=== PATIENT | female | born 1985 | race Caucasian/White ===

== ENCOUNTER 2018-08-01 02:55 | Inpatient (IN) | payer MEDICAID ==
[2018-08-01] MEDS ORDERED: ONDANSETRON 4 MG INJ IV ×2 (03:14→09:30)
[2018-08-01 03:21] LABS: ADD MAN DIFF? NO
[2018-08-01 03:22] LABS: ABNORMAL IP MESSAGE 1; BASOPHIL # 0.1 10^3/ul (0.0-0.1); BASOPHILS % 0.4 % (0.0-2.0); EOSINOPHILS # 1.5 10^3/ul (0.0-0.5); EOSINOPHILS % 11.3 % (0.0-7.0); HEMATOCRIT 41.1 % (37.0-47.0); HEMOGLOBIN 14.2 g/dl (12.0-16.0); LYMPHOCYTES # 5.6 10^3/ul (0.8-2.9); LYMPHOCYTES % 42.1 % (15.0-51.0); MEAN CORPUSCULAR HEMOGLOBIN 30.8 pg (29.0-33.0); MEAN CORPUSCULAR HGB CONC 34.5 g/dl (32.0-37.0); MEAN CORPUSCULAR VOLUME 89.2 fl (82.0-101.0); MEAN PLATELET VOLUME 10.5 fl (7.4-10.4); MONOCYTE # 0.7 10^3/ul (0.3-0.9); NEUTROPHIL # 5.5 10^3/ul (1.6-7.5); PLATELET COUNT 237 10^3/UL (140-415); RED BLOOD COUNT 4.61 10^6/ul (4.20-5.40); RED CELL DISTRIBUTION WIDTH 11.9 % (11.5-14.5)
[2018-08-01 03:22] LABS: WHITE BLOOD COUNT 13.3 10^3/ul (4.8-10.8)
[2018-08-01] MEDS: ONDANSETRON 4 MG INJ IV ×2 (03:24→09:49)
[2018-08-01] MEDS: morphine 4 MG/ML VIAL IV (03:24)
[2018-08-01] MEDS: SOD CHLORIDE 0.9% 1,000 ML IV ×3 (03:29→19:30)
[2018-08-01 03:47] LABS: POSITIVE DIFF @See below
[2018-08-01 04:36] LABS: INR 0.87; PROTIME 11.9 Sec (11.9-14.9); PT RATIO 0.9
[2018-08-01 04:37] LABS: PARTIAL THROMBOPLASTIN TIME 32.2 Sec (23.0-35.0)
[2018-08-01] MEDS: HYDROmorphONE 2 MG/ML SYG IV (04:39)
[2018-08-01 04:41] LABS: ADD UMIC NO; UR ASCORBIC ACID NEGATIVE (NEGATIVE); UR BILIRUBIN (Dip) NEGATIVE (NEGATIVE); UR BLOOD (Dip) NEGATIVE (NEGATIVE); UR CLARITY CLEAR (CLEAR); UR COLOR YELLOW (YELLOW); UR GLUCOSE (Dip) NEGATIVE (NEGATIVE); UR KETONES (Dip) 1+ mg/dL (NEGATIVE); UR LEUKOCYTE ESTERASE (Dip) NEGATIVE Leu/ul (NEGATIVE); UR NITRITE (Dip) NEGATIVE (NEGATIVE); UR TOTAL PROTEIN (Dip) NEGATIVE (NEGATIVE); UR UROBILINOGEN (Dip) NEGATIVE (NEGATIVE)
[2018-08-01 05:43] LABS: ALANINE AMINOTRANSFERASE 15 IU/L (13-69); ALBUMIN 4.4 g/dl (3.3-4.9); ALBUMIN/GLOBULIN RATIO 1.41; ALKALINE PHOSPHATASE 88 IU/L (42-121); AMYLASE 72 U/L (11-123); ANION GAP 13 (5-13); ASPARTATE AMINO TRANSFERASE 20 IU/L (15-46); BILIRUBIN,INDIRECT 0.6 mg/dl (0-1.1); BILIRUBIN,TOTAL 0.6 mg/dl (0.2-1.3); BLOOD UREA NITROGEN 19 mg/dl (7-20); CALCIUM 9.7 mg/dl (8.4-10.2); CARBON DIOXIDE 19 mmol/L (21-31); CHLORIDE 109 mmol/L (97-110); CREATININE 0.77 mg/dl (0.44-1.00); Estimated GFR > 60 mL/min (>60); GLUCOSE 107 mg/dl (70-220); LIPASE 67 U/L (23-300); POTASSIUM 3.2 mmol/L (3.5-5.1); SODIUM 141 mmol/L (135-144); TOTAL PROTEIN 7.5 g/dl (6.1-8.1)
[2018-08-01] MEDS: POTASSIUM CHLORIDE (SR) 20 MEQ TAB PO (06:22)
[2018-08-01] MEDS ORDERED: MAGNESIUM HYDROXIDE 30ML CUP PO (09:30)
[2018-08-01] MEDS ORDERED: BISACODYL 10 MG SUPP PR (09:30)
[2018-08-01] MEDS ORDERED: NACL 0.9% 3 ML SYG IV (09:30)
[2018-08-01] MEDS ORDERED: ACETAMINOPHEN 650 MG SUPP PR (09:30)
[2018-08-01] MEDS ORDERED: DOCUSATE SODIUM 100 MG CAP PO (09:30)
[2018-08-01] MEDS: morphine 2 MG INJ IV (09:49)
[2018-08-01] MEDS: ACETAMINOPHEN 325 MG TAB PO (23:33)
[2018-08-02] MEDS: SOD CHLORIDE 0.9% 1,000 ML IV ×2 (05:51→19:34)
[2018-08-02] MEDS: PANTOPRAZOLE 40 MG INJ IV (06:36)
[2018-08-02] MEDS ORDERED: SEVOFLURANE 15 MIN (07:00)
[2018-08-02 07:04] LABS: ALANINE AMINOTRANSFERASE 16 IU/L (13-69); ALBUMIN 3.4 g/dl (3.3-4.9); ALBUMIN/GLOBULIN RATIO 1.25; ALKALINE PHOSPHATASE 51 IU/L (42-121); ANION GAP 6 (5-13); ASPARTATE AMINO TRANSFERASE 16 IU/L (15-46); BILIRUBIN,INDIRECT 1.2 mg/dl (0-1.1); BILIRUBIN,TOTAL 1.2 mg/dl (0.2-1.3); BLOOD UREA NITROGEN 8 mg/dl (7-20); CALCIUM 8.3 mg/dl (8.4-10.2); CARBON DIOXIDE 24 mmol/L (21-31); CHLORIDE 111 mmol/L (97-110); CHOL/HDL RATIO 3.4 RATIO; CHOLESTEROL 134 mg/dl (100-200); CREATININE 0.67 mg/dl (0.44-1.00); Estimated GFR > 60 mL/min (>60); GLUCOSE 83 mg/dl (70-220); HDL CHOLESTEROL 39 mg/dl (34-82); LDL CHOLESTEROL,CALCULATED 72 mg/dl; PHOSPHORUS 3.3 mg/dl (2.5-4.9); POTASSIUM 4.1 mmol/L (3.5-5.1); SODIUM 141 mmol/L (135-144); TOTAL PROTEIN 6.1 g/dl (6.1-8.1); TRIGLYCERIDES 116 mg/dl (0-149)
[2018-08-02 07:13] LABS: T3 UPTAKE 34.8 % (23.5-40.5); T4 (THYROXINE) 6.6 ug/dl (5.5-11.0)
[2018-08-02 07:27] LABS: THYROID STIMULATING HORMONE 0.717 MIU/L (0.465-4.680)
[2018-08-02 08:05] LABS: HEMOGLOBIN A1C 5.1 % (0-5.9)
[2018-08-02] MEDS ORDERED: LIDOCAINE 2% (SDV) 5 ML INJ (11:17)
[2018-08-02] MEDS ORDERED: PROPOFOL 20 ML (11:17)
[2018-08-02] MEDS ORDERED: ROCURONIUM 50 MG INJ (11:17)
[2018-08-02] MEDS ORDERED: DEXAMETHASONE 4 MG/ML 5 ML INJ (11:17)
[2018-08-02] MEDS ORDERED: CEFAZOLIN 1 GM INJ (11:18)
[2018-08-02] MEDS ORDERED: ONDANSETRON 4 MG INJ (11:18)
[2018-08-02] MEDS: BUPIVACAINE 0.25%/EPI (SDV) 30 ML INJ (11:27)
[2018-08-02] MEDS ORDERED: SUGAMMADEX SODIUM 200 MG/2 ML VIAL IV (11:43)
[2018-08-02] MEDS ORDERED: ONDANSETRON 4 MG INJ IV ×2 (12:00→12:30)
[2018-08-02] MEDS ORDERED: OXYCODONE/ACETAMINOPHEN (5/325) TAB PO ×2 (12:00)
[2018-08-02] MEDS: HYDROmorphONE 1 MG/5 ML IV SYRINGE IV ×3 (12:16→12:32)
[2018-08-02] MEDS ORDERED: MIDAZOLAM 1 MG/ML 2 ML INJ IV (12:30)
[2018-08-02] MEDS ORDERED: METOCLOPRAMIDE 10 MG INJ IV (12:30)
[2018-08-02] MEDS ORDERED: MEPERIDINE 25 MG INJ IV (12:30)
[2018-08-02] MEDS ORDERED: EPHEDrine 25 MG/5 ML SYG IV (12:30)
[2018-08-02] MEDS ORDERED: FENTAnyl 50 MCG/ML VIAL IV ×3 (12:30)
[2018-08-02] MEDS ORDERED: DIPHENHYDRAMINE 50 MG INJ IV (12:30)
[2018-08-02] MEDS ORDERED: LABETALOL HCL 20MG INJ IV (12:30)
[2018-08-02] MEDS ORDERED: hydrALAzine 20 MG INJ IV (12:30)
[2018-08-02] MEDS ORDERED: ALBUTEROL 0.083% (NEB) 2.5 MG/3 ML AMP HHN (12:30)
[2018-08-02] MEDS ORDERED: HYDROmorphONE 1 MG/5 ML IV SYRINGE IV (12:30)
[2018-08-02] MEDS: KETOROLAC 30 MG INJ IV (12:32)
[2018-08-02] MEDS: morphine 2 MG INJ IV ×3 (15:19→21:35)
[2018-08-02] MEDS: HYDROCODONE/APAP (5/325) TAB PO (21:35)
[2018-08-03] MEDS: SOD CHLORIDE 0.9% 1,000 ML IV ×3 (01:30→18:51)
[2018-08-03 05:12] LABS: ADD MAN DIFF? NO
[2018-08-03 05:20] LABS: WHITE BLOOD COUNT 12.4 10^3/ul (4.8-10.8)
[2018-08-03 05:20] LABS: BASOPHILS % 0.2 % (0.0-2.0); EOSINOPHILS % 0.1 % (0.0-7.0); HEMATOCRIT 36.1 % (37.0-47.0); HEMOGLOBIN 12.3 g/dl (12.0-16.0); LYMPHOCYTES # 2.4 10^3/ul (0.8-2.9); LYMPHOCYTES % 19.2 % (15.0-51.0); MEAN CORPUSCULAR HEMOGLOBIN 30.4 pg (29.0-33.0); MEAN CORPUSCULAR HGB CONC 34.1 g/dl (32.0-37.0); MEAN CORPUSCULAR VOLUME 89.1 fl (82.0-101.0); MEAN PLATELET VOLUME 10.5 fl (7.4-10.4); MONOCYTE # 0.5 10^3/ul (0.3-0.9); MONOCYTES % 4.3 % (0.0-11.0); NEUTROPHIL # 9.4 10^3/ul (1.6-7.5); NEUTROPHILS % 75.8 % (39.0-77.0); PLATELET COUNT 210 10^3/UL (140-415); RED BLOOD COUNT 4.05 10^6/ul (4.20-5.40); RED CELL DISTRIBUTION WIDTH 11.9 % (11.5-14.5)
[2018-08-03] MEDS: HYDROCODONE/APAP (5/325) TAB PO ×3 (05:23→18:30)
[2018-08-03] MEDS: PANTOPRAZOLE (EC) 40 MG TAB PO (05:23)
[2018-08-03 06:04] LABS: ALANINE AMINOTRANSFERASE 28 IU/L (13-69); ALBUMIN 3.3 g/dl (3.3-4.9); ALBUMIN/GLOBULIN RATIO 1.17; ALKALINE PHOSPHATASE 49 IU/L (42-121); ANION GAP 5 (5-13); ASPARTATE AMINO TRANSFERASE 31 IU/L (15-46); BILIRUBIN,INDIRECT 0.7 mg/dl (0-1.1); BILIRUBIN,TOTAL 0.7 mg/dl (0.2-1.3); BLOOD UREA NITROGEN 8 mg/dl (7-20); CALCIUM 8.1 mg/dl (8.4-10.2); CARBON DIOXIDE 23 mmol/L (21-31); CHLORIDE 111 mmol/L (97-110); CREATININE 0.59 mg/dl (0.44-1.00); Estimated GFR > 60 mL/min (>60); GLUCOSE 93 mg/dl (70-220); POTASSIUM 3.9 mmol/L (3.5-5.1); SODIUM 139 mmol/L (135-144); TOTAL PROTEIN 6.1 g/dl (6.1-8.1)
[2018-08-03] MEDS: morphine 2 MG INJ IV (09:13)
[2018-08-04] MEDS: HYDROCODONE/APAP (5/325) TAB PO ×2 (00:16→08:49)
[2018-08-04] MEDS: SOD CHLORIDE 0.9% 1,000 ML IV (03:38)
[2018-08-04] MEDS: PANTOPRAZOLE (EC) 40 MG TAB PO (06:06)
== END 2018-08-04 15:04 | disposition home or self-care (01) | DRG 419 ==
LOC: FTE 02:55 → MS1 08:01
PROVIDERS: Internal Medicine
PROC: 0FT44ZZ Resection of Gallbladder, Percutaneous Endoscopic Approach (ICD-10-PCS; principal; 2018-08-02 11:00)
DX: K80.00 Calculus of gallbladder with acute cholecystitis without obstruction (principal); E66.9 Obesity, unspecified; Z68.31 Body mass index [BMI] 31.0-31.9, adult; E87.6 Hypokalemia
CPT/HCPCS: 71046; 76705; 78226; 80053; 80061; 81003; 81025; 82150; 83036; 83690; 83735; 84100; 84436; 84443; 84479; 85025; 85610; 85730; 87040-91; 87086; 88304; 96374; 96375; 99285-25